=== PATIENT | female | born 1930 | race Caucasian/White ===

== ENCOUNTER 2016-11-12 13:04 | Emergency (ER) | payer OTHER ==
[~2016-11-12] VITALS: Ht 160 cm; Wt 65.9 kg
[~2016-11-12 13:04] MED LIST: ACCOLATE20 MG PO; ACETAMINOPHEN1 EAC4 PO; ADVAIR 250/501 DISK IH; ALBUTEROL17 GM IH; ALBUTEROL2.5 MG/3 M IH; ASMANEX TW200 MICROG IH; ASMANEX0.135 GM IH; ASPIR-LOW81 MG PO; AVAPRO150 MG PO; BABY ASPIRIN81 MG PO; BRAIN MIGHT-DH1 EACH PO; COLACE100 MG PO; CYMBALTA30 MG PO; CYMBALTA60 MG PO; DEXILANT30 MG; DEXILANT60 MG PO; EPIKLOR20 MEQ PO; FLUZONE IM; GLIPIZIDE XL5 MG PO; GLUCOPHAGE1000 MG PO; GLUCOPHAGE500 MG PO; GLUCOTROL XL10 MG PO; HYDROCODON-ACE1 EAC7 PO; ISOSORBIDE MONO60 MG PO; LASIX40 MG PO; LEVOFLOXACIN750 MG PO; LEVOTHYROXINE50 MCG PO; LIPITOR20 MG PO; LIPITOR40 MG PO; LISINOPRIL20 MG PO; MULTI-DAY VITA1 EACH PO; PAXIL20 MG PO; PAXIL40 MG PO; PLAVIX75 MG PO; PREDNISONE10 MG PO; PREDNISONE20 MG PO; PRILOSEC20 MG PO; PROVENTIL,2.5 MG/0.5 IH; SPIRIVA1 INHALATI IH; SYNTHROID25 MCG PO; TOPROL XL50 MG PO; TRAMADOL HCL50 MG PO; TRAZODONE HCL50 MG PO; TYLENOL PM1 CAPLET PO; Ultram PO; VENTOLIN HFA18 GM IH; ZESTRIL,PRINIV2.5 MG PO
[2016-11-12 13:55] LABS: HEMATOCRIT 40.1 % (36.0-46.0); MCHC 33.2 G/DL (30.0-36.0); MCV 93.5 FL (83-99); MEAN PLAT.VOLUME 10.1 uM^3 (9.5-12.4); PLATELET COUNT 212 K/uL (156-360); RBC DIS.WIDTH-CV 13.5 % (11.8-14.6); RBC DIS.WIDTH-SD 44.4 % (39-53); RED BLOOD COUNT 4.29 M/uL (3.80-5.20); WHITE BLOOD COUNT 7.8 K/uL (4.1-10.2)
[2016-11-12 14:06] LABS: CHLORIDE 102 mEq/L (99-109); POTASSIUM 4.2 mEq/L (3.7-5.4); SODIUM 138 mEq/L (136-147)
[2016-11-12 14:08] LABS: GLUCOSE 222 mg/dL (70-99)
[2016-11-12 14:10] LABS: ANION GAP 9 MEQ/L (2-14)
[2016-11-12 14:12] LABS: GFR ESTIMATE (CALCULATED) 45 mL/min/
[2016-11-12 14:13] LABS: UREA NITROGEN (BUN) 24 mg/dL (9-23)
[2016-11-12 14:30] LABS: ADD MIUA? YES; BILIRUBIN NEGATIVE; BLOOD SMALL; COLOR YELLOW ((YELLOW)); GLUCOSE (STRIP) NEGATIVE; KETONES NEGATIVE; LEUKOCYTES LARGE; NITRITE NEGATIVE; PROTEIN (STRIP) NEGATIVE; SPECIFIC GRAVITY 1.008 (1.000-1.030); UROBILINOGEN 0.2 MG/DL (0.2-1.0)
[2016-11-12 14:50] LABS: BACTERIA RARE /HPF; EPITHELIAL CELLS 1+ /HPF; HYALINE CASTS 0-5 /LPF; MUCUS NONE SEEN /LPF; RED BLOOD CELLS 0-5 /HPF (0-5); UCUL ADDED? NO
[2016-11-12] MEDS ORDERED: MACROBID100 MG PO (17:15)
[2016-11-12 17:25] VITALS: BP 131/84
== END 2016-11-12 17:34 | disposition home or self-care (01) ==
LOC: EME 13:04
DX: N39.0 Urinary tract infection, site not specified (principal); G89.29 Other chronic pain; I11.0 Hypertensive heart disease with heart failure; I50.9 Heart failure, unspecified
CPT/HCPCS: 81003; 85027; 99281; 99284

== ENCOUNTER 2016-12-06 16:54 | Inpatient (IN) | payer OTHER ==
[~2016-12-06] VITALS: Ht 160 cm; Wt 72.9 kg
[~2016-12-06 16:54] MED LIST changes: +MACROBID100 MG PO
[2016-12-06 17:53] LABS: BASOPHIL COUNT 0.1 K/uL (0-0.1); EOSINOPHIL (%) 6.2 % (0-5); EOSINOPHIL COUNT 0.5 K/uL (0-0.3); HEMATOCRIT 34.6 % (36.0-46.0); IMMATURE GRANULOCYTE (%) 0.3 % (0.0-0.7); INSTRUMENT ABS NEUTROPHIL CT 4.6 K/uL; LYMPHOCYTE COUNT 1.7 K/uL (1.0-2.8); MCH 31.2 PG (29.0-34.0); MCHC 32.7 G/DL (30.0-36.0); MCV 95.6 FL (83-99); MEAN PLAT.VOLUME 9.7 uM^3 (9.5-12.4); MONOCYTE (%) 10.3 % (3-12); MONOCYTE COUNT 0.8 K/uL (0-0.8); NEUTROPHIL (%) 60.4 % (45-76); NEUTROPHIL COUNT 4.6 K/uL (1.8-6.4); PLATELET COUNT 242 K/uL (156-360); RBC DIS.WIDTH-CV 13.6 % (11.8-14.6); RBC DIS.WIDTH-SD 47.8 % (39-53); RED BLOOD COUNT 3.62 M/uL (3.80-5.20); WHITE BLOOD COUNT 7.6 K/uL (4.1-10.2)
[2016-12-06 18:06] LABS: CHLORIDE 103 mEq/L (99-109); POTASSIUM 5.2 mEq/L (3.7-5.4); SODIUM 138 mEq/L (136-147)
[2016-12-06 18:07] LABS: GLUCOSE 165 mg/dL (70-99)
[2016-12-06 18:09] LABS: ANION GAP 12 MEQ/L (2-14); INTER. NORMALIZED RATIO 1.4; PROTHROMBIN TIME 14.6 (9.2-11.2); PTT 34.5 (25-32)
[2016-12-06 18:11] LABS: GFR ESTIMATE (CALCULATED) 27 mL/min/
[2016-12-06 18:12] LABS: UREA NITROGEN (BUN) 55 mg/dL (9-23)
[2016-12-06 18:20] LABS: TROP-I INTERPRETATION NEGATIVE; TROPONIN-I 0.03 ng/mL (0.0-0.30)
[2016-12-06] MEDS ORDERED: LEVOTHYROXINE175 MCG PO (18:40)
[2016-12-06] MEDS ORDERED: LEVOTHYROXINE75 MCG PO (18:41)
[2016-12-06] MEDS ORDERED: HYDROCODON-ACE1 EAC7 PO (18:44)
[2016-12-07] VITALS (20 sets, daily range): BP systolic 86–131; BP diastolic 51–103
[2016-12-07 00:48] LABS: TROP-I INTERPRETATION NEGATIVE; TROPONIN-I 0.02 ng/mL (0.0-0.30)
[2016-12-07 01:40] LABS: METH RESISTANT S AUREUS PCR NEGATIVE (NEGATIVE)
[2016-12-07 01:45] LABS: SPECIMEN PROCESSING CONTROL PASS
[2016-12-07 01:46] LABS: PROBE CHECK PASS
[2016-12-07 06:18] LABS: ALKALINE PHOSPHATASE 123 IU/L (3-129); ANION GAP 12 MEQ/L (2-14); CHLORIDE 99 MEQ/L (99-109); GFR ESTIMATE (CALCULATED) 30 mL/min/; MAGNESIUM 1.8 mg/dl (1.3-2.7); POTASSIUM 4.9 MEQ/L (3.7-5.4); SAMPLE HEMOLYSIS CHECK 0; SAMPLE ICTERIC CHECK 0; SAMPLE LIPEMIA CHECK 0; SODIUM 136 MEQ/L (136-147); TOTAL BILIRUBIN 0.6 MG/DL (0.0-1.0); UREA NITROGEN (BUN) 56 mg/dL (9-23)
[2016-12-07 06:19] LABS: GLUCOSE 321 mg/dL (70-99)
[2016-12-07 06:26] LABS: HEMATOCRIT 34.1 % (36.0-46.0); MCH 30.7 PG (29.0-34.0); MCHC 31.4 G/DL (30.0-36.0); MCV 97.7 FL (83-99); MEAN PLAT.VOLUME 9.9 uM^3 (9.5-12.4); PLATELET COUNT 232 K/uL (156-360); RBC DIS.WIDTH-CV 13.8 % (11.8-14.6); RBC DIS.WIDTH-SD 49.3 % (39-53); RED BLOOD COUNT 3.49 M/uL (3.80-5.20)
[2016-12-07 06:38] LABS: WHITE BLOOD COUNT 4.9 K/uL (4.1-10.2)
[2016-12-07 06:39] LABS: TROP-I INTERPRETATION NEGATIVE; TROPONIN-I 0.03 ng/mL (0.0-0.30)
[2016-12-07 10:13] LABS: POINT-OF-CARE METER ID UU13113731
[2016-12-07 14:32] LABS: POINT-OF-CARE METER ID UU13113803
[2016-12-07 16:59] LABS: POINT-OF-CARE METER ID UU13113803
[2016-12-07 21:18] LABS: POINT-OF-CARE METER ID UU13113803
[2016-12-08] VITALS (17 sets, daily range): BP systolic 92–136; BP diastolic 56–89
[2016-12-08 09:29] LABS: ANION GAP 13 MEQ/L (2-14); CHLORIDE 99 MEQ/L (99-109); GFR ESTIMATE (CALCULATED) 30 mL/min/; GLUCOSE 281 mg/dL (70-99); SAMPLE HEMOLYSIS CHECK 1; SAMPLE ICTERIC CHECK 0; SAMPLE LIPEMIA CHECK 0; SODIUM 134 MEQ/L (136-147); UREA NITROGEN (BUN) 64 mg/dL (9-23)
[2016-12-08 09:44] LABS: MCH 30.5 PG (29.0-34.0); MEAN PLAT.VOLUME 9.7 uM^3 (9.5-12.4); PLATELET COUNT 273 K/uL (156-360); RED BLOOD COUNT 3.54 M/uL (3.80-5.20)
[2016-12-08 09:50] LABS: MCV 101.7 FL (83-99); WHITE BLOOD COUNT 19.4 K/uL (4.1-10.2)
[2016-12-08] MEDS ORDERED: PAXIL40 MG PO (12:52)
[2016-12-08 17:01] LABS: POINT-OF-CARE USER ID 606021424
[2016-12-08 20:28] LABS: POINT-OF-CARE METER ID UU13113698
[2016-12-09 04:03] VITALS: BP 152/92
[2016-12-09 06:40] LABS: EOSINOPHIL (%) 0 % (0-5); HEMATOCRIT 38.2 % (36.0-46.0); IMMATURE GRANULOCYTE (%) 0.5 % (0.0-0.7); IMMATURE GRANULOCYTE COUNT 0.1 K/uL; INSTRUMENT ABS NEUTROPHIL CT 18.1 K/uL; LYMPHOCYTE COUNT 1.5 K/uL (1.0-2.8); MCH 30.5 PG (29.0-34.0); MCHC 31.7 G/DL (30.0-36.0); MEAN PLAT.VOLUME 9.5 uM^3 (9.5-12.4); MONOCYTE (%) 7.9 % (3-12); MONOCYTE COUNT 1.7 K/uL (0-0.8); NEUTROPHIL (%) 84.5 % (45-76); NEUTROPHIL COUNT 18.1 K/uL (1.8-6.4); PLATELET COUNT 323 K/uL (156-360); RBC DIS.WIDTH-CV 13.9 % (11.8-14.6); RBC DIS.WIDTH-SD 49.3 % (39-53); RED BLOOD COUNT 3.97 M/uL (3.80-5.20); WHITE BLOOD COUNT 21.4 K/uL (4.1-10.2)
[2016-12-09 06:42] LABS: MCV 96.2 FL (83-99)
[2016-12-09 07:01] LABS: ANION GAP 14 MEQ/L (2-14); CHLORIDE 96 MEQ/L (99-109); GLUCOSE 244 mg/dL (70-99); SAMPLE HEMOLYSIS CHECK 0; SAMPLE ICTERIC CHECK 0; SAMPLE LIPEMIA CHECK 0; SODIUM 131 MEQ/L (136-147); UREA NITROGEN (BUN) 79 mg/dL (9-23)
[2016-12-09 07:02] LABS: GFR ESTIMATE (CALCULATED) 19 mL/min/; POTASSIUM 6.5 MEQ/L (3.7-5.4)
[2016-12-09 08:00] LABS: POINT-OF-CARE METER ID UU13113698; POINT-OF-CARE USER ID NUTSLF44
[2016-12-09 08:19] VITALS: BP 134/87
[2016-12-09 09:07] LABS: EOSINOPHIL (%) 0 % (0-5); HEMATOCRIT 38.6 % (36.0-46.0); IMMATURE GRANULOCYTE (%) 0.6 % (0.0-0.7); IMMATURE GRANULOCYTE COUNT 0.1 K/uL; INSTRUMENT ABS NEUTROPHIL CT 18.2 K/uL; LYMPHOCYTE COUNT 1.8 K/uL (1.0-2.8); MCH 30.9 PG (29.0-34.0); MCHC 31.6 G/DL (30.0-36.0); MCV 97.7 FL (83-99); MEAN PLAT.VOLUME 9.8 uM^3 (9.5-12.4); MONOCYTE (%) 6.8 % (3-12); MONOCYTE COUNT 1.5 K/uL (0-0.8); NEUTROPHIL (%) 84.1 % (45-76); NEUTROPHIL COUNT 18.2 K/uL (1.8-6.4); PLATELET COUNT 286 K/uL (156-360); RBC DIS.WIDTH-SD 50.4 % (39-53); RED BLOOD COUNT 3.95 M/uL (3.80-5.20); WHITE BLOOD COUNT 21.6 K/uL (4.1-10.2)
[2016-12-09 09:38] LABS: ANION GAP 15 MEQ/L (2-14); CHLORIDE 97 MEQ/L (99-109); GFR ESTIMATE (CALCULATED) 19 mL/min/; GLUCOSE 243 mg/dL (70-99); SAMPLE HEMOLYSIS CHECK 0; SAMPLE ICTERIC CHECK 0; SAMPLE LIPEMIA CHECK 0; SODIUM 130 MEQ/L (136-147); UREA NITROGEN (BUN) 82 mg/dL (9-23)
[2016-12-09 09:39] LABS: POTASSIUM 6.7 MEQ/L (3.7-5.4)
[2016-12-09 11:31] VITALS: BP 133/68
[2016-12-09 11:43] LABS: POINT-OF-CARE METER ID UU13113698; POINT-OF-CARE USER ID NUTSLF44
[2016-12-09 13:13] LABS: ANION GAP 11 MEQ/L (2-14); CHLORIDE 100 MEQ/L (99-109); SAMPLE HEMOLYSIS CHECK 0; SAMPLE ICTERIC CHECK 0; SAMPLE LIPEMIA CHECK 0
[2016-12-09 13:20] LABS: POTASSIUM 5.3 MEQ/L (3.7-5.4); SODIUM 137 MEQ/L (136-147)
[2016-12-09 13:28] LABS: GFR ESTIMATE (CALCULATED) 19 mL/min/; GLUCOSE 211 mg/dL (70-99); UREA NITROGEN (BUN) 85 mg/dL (9-23)
[2016-12-09 14:07] LABS: AHBS INDEX 0.35; HEPATITIS B SURFACE ANTIBODY Nonreactive
[2016-12-09 14:08] LABS: ANTI-HEPATITIS B CORE (IGM) Nonreactive; HBC IgM INDEX 0.34
[2016-12-09 20:00] VITALS: BP 128/74
[2016-12-09 21:36] LABS: POINT-OF-CARE METER ID UU13113698
[2016-12-09 23:51] VITALS: BP 122/81
[2016-12-10 04:36] VITALS: BP 119/83
[2016-12-10 07:37] LABS: POINT-OF-CARE METER ID UU13113781
[2016-12-10 09:02] LABS: ANION GAP 11 MEQ/L (2-14); CHLORIDE 99 MEQ/L (99-109); GLUCOSE 200 mg/dL (70-99); SAMPLE HEMOLYSIS CHECK 0; SAMPLE ICTERIC CHECK 0; SAMPLE LIPEMIA CHECK 0; SODIUM 139 MEQ/L (136-147); UREA NITROGEN (BUN) 43 mg/dL (9-23)
[2016-12-10 09:03] LABS: GFR ESTIMATE (CALCULATED) 30 mL/min/; POTASSIUM 3.9 MEQ/L (3.7-5.4)
[2016-12-10 09:15] LABS: EOSINOPHIL (%) 0.2 % (0-5); HEMATOCRIT 36.2 % (36.0-46.0); IMMATURE GRANULOCYTE (%) 0.4 % (0.0-0.7); IMMATURE GRANULOCYTE COUNT 0.1 K/uL; INSTRUMENT ABS NEUTROPHIL CT 9.2 K/uL; MCH 30.3 PG (29.0-34.0); MCHC 31.8 G/DL (30.0-36.0); MCV 95.3 FL (83-99); MEAN PLAT.VOLUME 9.7 uM^3 (9.5-12.4); MONOCYTE (%) 11.3 % (3-12); MONOCYTE COUNT 1.4 K/uL (0-0.8); NEUTROPHIL (%) 72.5 % (45-76); NEUTROPHIL COUNT 9.2 K/uL (1.8-6.4); PLATELET COUNT 219 K/uL (156-360); RBC DIS.WIDTH-CV 13.8 % (11.8-14.6); RBC DIS.WIDTH-SD 47.8 % (39-53)
[2016-12-10 09:18] LABS: WHITE BLOOD COUNT 12.8 K/uL (4.1-10.2)
[2016-12-10 09:30] VITALS: BP 111/79
[2016-12-10 11:00] VITALS: BP 108/62
[2016-12-10 11:44] LABS: POINT-OF-CARE METER ID UU13113781
[2016-12-10 15:57] VITALS: BP 109/67
[2016-12-10 16:19] LABS: POINT-OF-CARE METER ID UU13113781
[2016-12-10 20:31] VITALS: BP 126/83
[2016-12-10 20:46] LABS: POINT-OF-CARE METER ID UU13113781
[2016-12-11] VITALS: BP 135/75
[2016-12-11 03:50] VITALS: BP 139/89
[2016-12-11 07:40] VITALS: BP 134/71
[2016-12-11 10:27] LABS: ANION GAP 9 MEQ/L (2-14); CHLORIDE 98 MEQ/L (99-109); POTASSIUM 3.7 MEQ/L (3.7-5.4); SAMPLE HEMOLYSIS CHECK 0; SAMPLE ICTERIC CHECK 0; SAMPLE LIPEMIA CHECK 0; SODIUM 136 MEQ/L (136-147)
[2016-12-11 10:32] LABS: GFR ESTIMATE (CALCULATED) 41 mL/min/; GLUCOSE 235 mg/dL (70-99); UREA NITROGEN (BUN) 38 mg/dL (9-23)
[2016-12-11 10:33] LABS: EOSINOPHIL (%) 0.3 % (0-5); EOSINOPHIL COUNT 0.1 K/uL (0-0.3); IMMATURE GRANULOCYTE (%) 0.5 % (0.0-0.7); IMMATURE GRANULOCYTE COUNT 0.1 K/uL; INSTRUMENT ABS NEUTROPHIL CT 15.5 K/uL; LYMPHOCYTE COUNT 0.9 K/uL (1.0-2.8); MCH 30.3 PG (29.0-34.0); MCHC 31.9 G/DL (30.0-36.0); MCV 95.1 FL (83-99); MEAN PLAT.VOLUME 9.6 uM^3 (9.5-12.4); MONOCYTE (%) 6.5 % (3-12); MONOCYTE COUNT 1.2 K/uL (0-0.8); NEUTROPHIL (%) 87.5 % (45-76); NEUTROPHIL COUNT 15.5 K/uL (1.8-6.4); PLATELET COUNT 250 K/uL (156-360); RBC DIS.WIDTH-CV 13.6 % (11.8-14.6); RBC DIS.WIDTH-SD 47.1 % (39-53); RED BLOOD COUNT 3.89 M/uL (3.80-5.20); WHITE BLOOD COUNT 17.7 K/uL (4.1-10.2)
[2016-12-11 11:05] VITALS: BP 132/86
[2016-12-11 11:27] LABS: POINT-OF-CARE METER ID UU13113698
[2016-12-11 16:42] LABS: POINT-OF-CARE METER ID UU13113698
[2016-12-11 19:20] VITALS: BP 169/95
[2016-12-11 20:47] LABS: POINT-OF-CARE METER ID UU13113781
[2016-12-12 00:15] VITALS: BP 132/95
[2016-12-12 04:00] VITALS: BP 157/100
[2016-12-12 06:23] LABS: EOSINOPHIL (%) 2.3 % (0-5); EOSINOPHIL COUNT 0.4 K/uL (0-0.3); HEMATOCRIT 41.5 % (36.0-46.0); IMMATURE GRANULOCYTE (%) 0.4 % (0.0-0.7); IMMATURE GRANULOCYTE COUNT 0.1 K/uL; INSTRUMENT ABS NEUTROPHIL CT 11.4 K/uL; MCHC 31.3 G/DL (30.0-36.0); MCV 95.6 FL (83-99); MEAN PLAT.VOLUME 9.5 uM^3 (9.5-12.4); MONOCYTE (%) 8.8 % (3-12); MONOCYTE COUNT 1.3 K/uL (0-0.8); NEUTROPHIL (%) 75.4 % (45-76); NEUTROPHIL COUNT 11.4 K/uL (1.8-6.4); PLATELET COUNT 250 K/uL (156-360); RBC DIS.WIDTH-CV 13.5 % (11.8-14.6); RBC DIS.WIDTH-SD 47.4 % (39-53); RED BLOOD COUNT 4.34 M/uL (3.80-5.20); WHITE BLOOD COUNT 15.1 K/uL (4.1-10.2)
[2016-12-12 06:47] LABS: ANION GAP 8 MEQ/L (2-14); CHLORIDE 99 MEQ/L (99-109); POTASSIUM 4.2 MEQ/L (3.7-5.4); SAMPLE HEMOLYSIS CHECK 0; SAMPLE ICTERIC CHECK 0; SAMPLE LIPEMIA CHECK 0; SODIUM 137 MEQ/L (136-147)
[2016-12-12 06:53] LABS: GFR ESTIMATE (CALCULATED) 50 mL/min/; GLUCOSE 191 mg/dL (70-99); UREA NITROGEN (BUN) 29 mg/dL (9-23)
[2016-12-12 07:41] LABS: POINT-OF-CARE METER ID UU13113698
[2016-12-12 07:45] VITALS: BP 141/91
[2016-12-12 11:34] LABS: POINT-OF-CARE METER ID UU13113698
[2016-12-12 12:00] VITALS: BP 114/81
[2016-12-12 14:39] LABS: METH RESISTANT S AUREUS PCR NEGATIVE (NEGATIVE)
[2016-12-12 14:40] LABS: PROBE CHECK PASS; SPECIMEN PROCESSING CONTROL PASS
[2016-12-12 16:32] LABS: POINT-OF-CARE METER ID UU13113698
[2016-12-12 16:34] VITALS: BP 118/70
[2016-12-12 19:15] VITALS: BP 134/91
[2016-12-12 21:15] LABS: POINT-OF-CARE METER ID UU13113698
[2016-12-13] VITALS (7 sets, daily range): BP systolic 112–139; BP diastolic 65–100
[2016-12-13 07:43] LABS: ANION GAP 11 MEQ/L (2-14); CHLORIDE 101 MEQ/L (99-109); POTASSIUM 4.1 MEQ/L (3.7-5.4); SAMPLE HEMOLYSIS CHECK 0; SAMPLE ICTERIC CHECK 0; SAMPLE LIPEMIA CHECK 0; SODIUM 137 MEQ/L (136-147)
[2016-12-13 07:49] LABS: GFR ESTIMATE (CALCULATED) 50 mL/min/; GLUCOSE 172 mg/dL (70-99); UREA NITROGEN (BUN) 28 mg/dL (9-23)
[2016-12-13 07:56] LABS: POINT-OF-CARE USER ID ENVKC36
[2016-12-13 11:42] LABS: POINT-OF-CARE USER ID ENVKC36
[2016-12-13 16:40] LABS: POINT-OF-CARE USER ID ENVKC36
[2016-12-13 21:16] LABS: POINT-OF-CARE METER ID UU14174216
[2016-12-14 04:02] VITALS: BP 122/79
[2016-12-14 07:30] VITALS: BP 130/80
[2016-12-14 07:34] LABS: POINT-OF-CARE METER ID UU13113698; POINT-OF-CARE USER ID ENVKC36
[2016-12-14 11:49] LABS: POINT-OF-CARE METER ID UU13113698; POINT-OF-CARE USER ID NUTSLF44
[2016-12-14 12:00] VITALS: BP 133/91
[2016-12-14] MEDS ORDERED: NOVOLOG PE100 UNITS/ SC (15:12)
[2016-12-14] MEDS ORDERED: PREDNISONE10 M1 PO (15:12)
[2016-12-14] MEDS ORDERED: AUGMENTIN875 MG PO (15:14)
[2016-12-14] MEDS ORDERED: DUONEB 2.5-0.5 M3 ML AEROSOL (15:15)
[2016-12-14] MEDS ORDERED: ELIQUIS5 MG PO (15:18)
[2016-12-14] MEDS ORDERED: DOCUSATE SODIU100 MG PO (15:20)
[2016-12-14] MEDS ORDERED: LOPRESSOR50 MG PO (15:20)
[2016-12-14 15:54] VITALS: BP 120/81
[2016-12-14 16:00] LABS: POINT-OF-CARE METER ID UU13113698
[2016-12-14] MEDS ORDERED: AUGMENTIN500 MG PO ×2 (16:33→16:47)
[2016-12-14] MEDS ORDERED: HYDROCODON-ACE1 EAC7 PO (18:14)
== END 2016-12-14 18:42 | DRG 682 ==
LOC: EME → EDBD 16:54 → EME 16:54 → 4WEST 21:36 → EDOF 21:36 → 4EAST 21:36 → 4WEST 12-07 00:01 → 4EAST 12-08 18:02
PROVIDERS: Emergency Medicine; Hospitalist; Internal Medicine; Internal Medicine Nephrology; Physician Assistant Medical; Student in an Organized Health Care Education/Training Program
PROC: B543ZZA Ultrasonography of Right Jugular Veins, Guidance (ICD-10-PCS; principal; 2016-12-09)
PROC: 05HM33Z Insertion of Infusion Device into Right Internal Jugular Vein, Percutaneous Approach (ICD-10-PCS; principal; 2016-12-09)
PROC: 5A1D60Z (ICD-10-PCS; principal; 2016-12-09)
DX: N17.9 Acute kidney failure, unspecified (principal); J96.00 Acute respiratory failure, unspecified whether with hypoxia or hypercapnia; J18.9 Pneumonia, unspecified organism; J45.901 Unspecified asthma with (acute) exacerbation; I50.22 Chronic systolic (congestive) heart failure; E87.2 Acidosis; I82.612 Acute embolism and thrombosis of superficial veins of left upper extremity; I70.202 Unspecified atherosclerosis of native arteries of extremities, left leg; I48.91 Unspecified atrial fibrillation; I25.5 Ischemic cardiomyopathy; E11.22 Type 2 diabetes mellitus with diabetic chronic kidney disease; I12.9 Hypertensive chronic kidney disease with stage 1 through stage 4 chronic kidney disease, or unspecified chronic kidney disease; J44.9 Chronic obstructive pulmonary disease, unspecified; N18.3 Chronic kidney disease, stage 3 (moderate); I25.10 Atherosclerotic heart disease of native coronary artery without angina pectoris; E03.9 Hypothyroidism, unspecified; K21.9 Gastro-esophageal reflux disease without esophagitis; G89.4 Chronic pain syndrome; K43.2 Incisional hernia without obstruction or gangrene; Y95 Nosocomial condition; K44.9 Diaphragmatic hernia without obstruction or gangrene; I25.2 Old myocardial infarction; Z95.1 Presence of aortocoronary bypass graft; Z90.49 Acquired absence of other specified parts of digestive tract
CPT/HCPCS: 71010; 76770; 80048; 80048 91; 80053; 80069; 82948; 83735; 84100; 84443; 84484; 85025; 85025 91; 85027; 85610; 85730; 86705; 86706; 87340; 87641; 93005; 93306; 93925; 93971; 94640; 94640 76; 94760; 94799; 97530 GO; 97530 GP; 99202; 99281; 99285; C1752; J0153; J1644; J1815; J2405; J2543; J2920; J2930; J3370; J7030; J7050

== ENCOUNTER 2016-12-19 10:05 | Inpatient (IN) | payer OTHER ==
[~2016-12-19] VITALS: Ht 160 cm; Wt 53.1 kg
[2016-12-19] VITALS (11 sets, daily range): BP systolic 98–136; BP diastolic 53–80
[~2016-12-19 10:05] MED LIST changes: +AUGMENTIN500 MG PO; +AUGMENTIN875 MG PO; +DOCUSATE SODIU100 MG PO; +DUONEB 2.5-0.5 M3 ML AEROSOL; +ELIQUIS5 MG PO; +LEVOTHYROXINE175 MCG PO; +LEVOTHYROXINE75 MCG PO; +LOPRESSOR50 MG PO; +NOVOLOG PE100 UNITS/ SC; +PREDNISONE10 M1 PO
[2016-12-19 10:39] LABS: EOSINOPHIL (%) 1.8 % (0-5); EOSINOPHIL COUNT 0.3 K/uL (0-0.3); HEMATOCRIT 36.4 % (36.0-46.0); IMMATURE GRANULOCYTE (%) 0.4 % (0.0-0.7); IMMATURE GRANULOCYTE COUNT 0.1 K/uL; INSTRUMENT ABS NEUTROPHIL CT 11.2 K/uL; LYMPHOCYTE COUNT 1.8 K/uL (1.0-2.8); MCH 31.1 PG (29.0-34.0); MCV 94.3 FL (83-99); MONOCYTE (%) 6.9 % (3-12); NEUTROPHIL (%) 78.5 % (45-76); NEUTROPHIL COUNT 11.2 K/uL (1.8-6.4); PLATELET COUNT 227 K/uL (156-360); RBC DIS.WIDTH-CV 14.2 % (11.8-14.6); RBC DIS.WIDTH-SD 47.8 % (39-53); RED BLOOD COUNT 3.86 M/uL (3.80-5.20); WHITE BLOOD COUNT 14.3 K/uL (4.1-10.2)
[2016-12-19 10:41] LABS: CARBON DIOXIDE (BICARBONATE) 28.5 MEQ/L (20-31)
[2016-12-19 10:47] LABS: CHLORIDE 100 mEq/L (99-109); POTASSIUM 4.7 mEq/L (3.7-5.4); SODIUM 136 mEq/L (136-147)
[2016-12-19 10:49] LABS: GLUCOSE 222 mg/dL (70-99)
[2016-12-19 10:50] LABS: ANION GAP 14 MEQ/L (2-14)
[2016-12-19 10:52] LABS: GFR ESTIMATE (CALCULATED) 35 mL/min/
[2016-12-19 10:53] LABS: UREA NITROGEN (BUN) 33 mg/dL (9-23)
[2016-12-19 11:00] LABS: TROP-I INTERPRETATION NEGATIVE; TROPONIN-I 0.01 ng/mL (0.0-0.30)
[2016-12-19] MEDS ORDERED: BREO ELLIPTA I1 EACH IH (15:51)
[2016-12-19] MEDS ORDERED: METFORMIN HCL500 MG PO (15:52)
[2016-12-19] MEDS ORDERED: MILLIPRED5 MG PO (15:54)
[2016-12-19] MEDS ORDERED: AUGMENTIN875 MG PO (15:57)
[2016-12-19] MEDS ORDERED: METOPROLOL TART50 MG PO (15:59)
[2016-12-19] MEDS ORDERED: DUONEB 2.5-0.5 M3 ML AEROSOL (15:59)
[2016-12-19] MEDS ORDERED: DULCOLAX10 MG PR (16:00)
[2016-12-19] MEDS ORDERED: MIRALAX255 GM PO (16:02)
[2016-12-19] MEDS ORDERED: FUROSEMIDE40 MG PO (16:02)
[2016-12-19] MEDS ORDERED: PHILLIPS'400 MG/5 M PO (16:02)
[2016-12-19 16:40] LABS: METH RESISTANT S AUREUS PCR NEGATIVE (NEGATIVE)
[2016-12-19 16:44] LABS: PROBE CHECK PASS; SPECIMEN PROCESSING CONTROL PASS
[2016-12-20] VITALS (21 sets, daily range): BP systolic 110–141; BP diastolic 64–102
[2016-12-20 00:32] LABS: HEMATOCRIT 34.7 % (36.0-46.0); MCH 30.4 PG (29.0-34.0); MCHC 31.4 G/DL (30.0-36.0); MCV 96.7 FL (83-99); MEAN PLAT.VOLUME 10.1 uM^3 (9.5-12.4); PLATELET COUNT 203 K/uL (156-360); RBC DIS.WIDTH-CV 14.3 % (11.8-14.6); RBC DIS.WIDTH-SD 50.3 % (39-53); RED BLOOD COUNT 3.59 M/uL (3.80-5.20)
[2016-12-20 00:33] LABS: WHITE BLOOD COUNT 9.6 K/uL (4.1-10.2)
[2016-12-20 00:43] LABS: CHLORIDE 97 mEq/L (99-109); POTASSIUM 5.5 mEq/L (3.7-5.4); SODIUM 134 mEq/L (136-147)
[2016-12-20 00:44] LABS: MAGNESIUM 1.6 mg/dL (1.3-2.7)
[2016-12-20 00:46] LABS: ANION GAP 16 MEQ/L (2-14)
[2016-12-20 00:49] LABS: GFR ESTIMATE (CALCULATED) 28 mL/min/
[2016-12-20 00:50] LABS: UREA NITROGEN (BUN) 43 mg/dL (9-23)
[2016-12-20 01:05] LABS: GLUCOSE 616 mg/dL (70-99)
[2016-12-20 04:13] LABS: POINT-OF-CARE METER ID UU13113731
[2016-12-20 06:12] LABS: POINT-OF-CARE METER ID UU14162636
[2016-12-20 10:32] LABS: POINT-OF-CARE METER ID UU13113731
[2016-12-20 12:14] LABS: POINT-OF-CARE METER ID UU14174217
[2016-12-21] VITALS (16 sets, daily range): BP systolic 105–142; BP diastolic 53–95
[2016-12-21 06:00] LABS: POINT-OF-CARE METER ID UU14162636
[2016-12-21 09:05] LABS: HEMATOCRIT 36.7 % (36.0-46.0); MCH 30.1 PG (29.0-34.0); MCHC 31.6 G/DL (30.0-36.0); MCV 95.3 FL (83-99); MEAN PLAT.VOLUME 10.1 uM^3 (9.5-12.4); PLATELET COUNT 209 K/uL (156-360); RBC DIS.WIDTH-CV 14.6 % (11.8-14.6); RBC DIS.WIDTH-SD 49.6 % (39-53); RED BLOOD COUNT 3.85 M/uL (3.80-5.20)
[2016-12-21 09:06] LABS: WHITE BLOOD COUNT 15.4 K/uL (4.1-10.2)
[2016-12-21 09:19] LABS: ANION GAP 10 MEQ/L (2-14); CHLORIDE 98 MEQ/L (99-109); SAMPLE HEMOLYSIS CHECK 0; SAMPLE ICTERIC CHECK 0; SAMPLE LIPEMIA CHECK 0; SODIUM 139 MEQ/L (136-147); UREA NITROGEN (BUN) 38 mg/dL (9-23)
[2016-12-21 09:41] LABS: GFR ESTIMATE (CALCULATED) 45 mL/min/; GLUCOSE 94 mg/dL (70-99); POTASSIUM 3.6 MEQ/L (3.7-5.4)
[2016-12-21 10:25] LABS: POINT-OF-CARE METER ID UU13113803
[2016-12-21 11:49] LABS: POINT-OF-CARE METER ID UU14162636
[2016-12-21 17:38] LABS: POINT-OF-CARE METER ID UU13113803
[2016-12-22] VITALS (15 sets, daily range): BP systolic 109–142; BP diastolic 61–89
[2016-12-22 00:10] LABS: POINT-OF-CARE METER ID UU13113803
[2016-12-22 07:32] LABS: ANION GAP 7 MEQ/L (2-14); CHLORIDE 99 MEQ/L (99-109); GFR ESTIMATE (CALCULATED) 41 mL/min/; GLUCOSE 287 mg/dL (70-99); POTASSIUM 4.5 MEQ/L (3.7-5.4); SAMPLE HEMOLYSIS CHECK 0; SAMPLE ICTERIC CHECK 0; SAMPLE LIPEMIA CHECK 0; SODIUM 135 MEQ/L (136-147); UREA NITROGEN (BUN) 33 mg/dL (9-23)
[2016-12-22 08:11] LABS: MCH 30.6 PG (29.0-34.0); MCHC 32.2 G/DL (30.0-36.0); MEAN PLAT.VOLUME 10.5 uM^3 (9.5-12.4); PLATELET COUNT 179 K/uL (156-360); RBC DIS.WIDTH-CV 14.6 % (11.8-14.6); RBC DIS.WIDTH-SD 50.4 % (39-53); RED BLOOD COUNT 3.79 M/uL (3.80-5.20)
[2016-12-22 08:13] LABS: WHITE BLOOD COUNT 10.4 K/uL (4.1-10.2)
[2016-12-23] VITALS (14 sets, daily range): BP systolic 104–143; BP diastolic 48–77
[2016-12-23 05:51] LABS: HEMATOCRIT 34.5 % (36.0-46.0); MCH 29.8 PG (29.0-34.0); MCHC 31.9 G/DL (30.0-36.0); MCV 93.5 FL (83-99); MEAN PLAT.VOLUME 10.2 uM^3 (9.5-12.4); PLATELET COUNT 185 K/uL (156-360); RBC DIS.WIDTH-CV 14.5 % (11.8-14.6); RBC DIS.WIDTH-SD 48.9 % (39-53); RED BLOOD COUNT 3.69 M/uL (3.80-5.20)
[2016-12-23 06:19] LABS: ANION GAP 8 MEQ/L (2-14); CHLORIDE 97 MEQ/L (99-109); GFR ESTIMATE (CALCULATED) 50 mL/min/; GLUCOSE 274 mg/dL (70-99); POTASSIUM 3.9 MEQ/L (3.7-5.4); SAMPLE HEMOLYSIS CHECK 0; SAMPLE ICTERIC CHECK 0; SAMPLE LIPEMIA CHECK 0; SODIUM 135 MEQ/L (136-147); UREA NITROGEN (BUN) 31 mg/dL (9-23)
[2016-12-23 11:27] LABS: POINT-OF-CARE METER ID UU13113803; POINT-OF-CARE USER ID 606021424
[2016-12-23 12:30] LABS: POINT-OF-CARE METER ID UU13113803
[2016-12-23 16:06] LABS: POINT-OF-CARE METER ID UU13113803; POINT-OF-CARE USER ID NUTJLF39
[2016-12-23 21:35] LABS: POINT-OF-CARE METER ID UU13113803
[2016-12-24] VITALS (7 sets, daily range): BP systolic 133–188; BP diastolic 69–94
[2016-12-24 06:55] LABS: HEMATOCRIT 35.5 % (36.0-46.0); MCH 30.4 PG (29.0-34.0); MCHC 32.4 G/DL (30.0-36.0); MCV 93.9 FL (83-99); MEAN PLAT.VOLUME 10.6 uM^3 (9.5-12.4); PLATELET COUNT 174 K/uL (156-360); RBC DIS.WIDTH-CV 14.7 % (11.8-14.6); RBC DIS.WIDTH-SD 49.9 % (39-53); RED BLOOD COUNT 3.78 M/uL (3.80-5.20); WHITE BLOOD COUNT 11.7 K/uL (4.1-10.2)
[2016-12-24 07:04] LABS: ANION GAP 6 MEQ/L (2-14); CHLORIDE 99 MEQ/L (99-109); GFR ESTIMATE (CALCULATED) 50 mL/min/; GLUCOSE 155 mg/dL (70-99); POTASSIUM 3.7 MEQ/L (3.7-5.4); SAMPLE HEMOLYSIS CHECK 0; SAMPLE ICTERIC CHECK 0; SAMPLE LIPEMIA CHECK 0; SODIUM 136 MEQ/L (136-147); UREA NITROGEN (BUN) 27 mg/dL (9-23)
[2016-12-24 12:32] LABS: POINT-OF-CARE METER ID UU14149397
[2016-12-24 17:07] LABS: POINT-OF-CARE METER ID UU14188577
[2016-12-24 21:32] LABS: POINT-OF-CARE METER ID UU14149397
[2016-12-25 05:44] VITALS: BP 112/75
[2016-12-25 06:55] LABS: POINT-OF-CARE METER ID UU14188577
[2016-12-25 08:38] VITALS: BP 120/80
[2016-12-25 09:10] LABS: ANION GAP 7 MEQ/L (2-14); CHLORIDE 100 MEQ/L (99-109); GFR ESTIMATE (CALCULATED) > 59 mL/min/; POTASSIUM 3.6 MEQ/L (3.7-5.4); SAMPLE HEMOLYSIS CHECK 0; SAMPLE ICTERIC CHECK 0; SAMPLE LIPEMIA CHECK 0; SODIUM 138 MEQ/L (136-147); UREA NITROGEN (BUN) 21 mg/dL (9-23)
[2016-12-25 09:16] LABS: GLUCOSE 100 mg/dL (70-99)
[2016-12-25 11:30] VITALS: BP 120/90
[2016-12-25 16:30] VITALS: BP 100/70
[2016-12-25 20:02] VITALS: BP 154/81
[2016-12-26 00:07] VITALS: BP 164/97
[2016-12-26 01:53] LABS: POINT-OF-CARE METER ID UU14149397
[2016-12-26 04:52] LABS: POINT-OF-CARE METER ID UU14149397
[2016-12-26 05:00] LABS: HEMATOCRIT 39.3 % (36.0-46.0); MCH 30.2 PG (29.0-34.0); MCHC 31.6 G/DL (30.0-36.0); MCV 95.9 FL (83-99); MEAN PLAT.VOLUME 10.2 uM^3 (9.5-12.4); PLATELET COUNT 203 K/uL (156-360); RBC DIS.WIDTH-CV 14.6 % (11.8-14.6); RBC DIS.WIDTH-SD 50.9 % (39-53); WHITE BLOOD COUNT 12.6 K/uL (4.1-10.2)
[2016-12-26 05:04] LABS: HEMATOCRIT 39.3 % (36.0-46.0); MCH 30.6 PG (29.0-34.0); MCHC 32.1 G/DL (30.0-36.0); MCV 95.4 FL (83-99); MEAN PLAT.VOLUME 10.1 uM^3 (9.5-12.4); PLATELET COUNT 215 K/uL (156-360); RBC DIS.WIDTH-CV 14.6 % (11.8-14.6); RBC DIS.WIDTH-SD 50.7 % (39-53); RED BLOOD COUNT 4.12 M/uL (3.80-5.20); WHITE BLOOD COUNT 12.7 K/uL (4.1-10.2)
[2016-12-26 05:06] LABS: POINT-OF-CARE METER ID UU14149397
[2016-12-26 05:08] LABS: CHLORIDE 100 mEq/L (99-109); POTASSIUM 3.5 mEq/L (3.7-5.4); SODIUM 140 mEq/L (136-147)
[2016-12-26 05:10] LABS: CHLORIDE 99 mEq/L (99-109); POTASSIUM 3.4 mEq/L (3.7-5.4); SODIUM 139 mEq/L (136-147)
[2016-12-26 05:11] LABS: ANION GAP 11 MEQ/L (2-14)
[2016-12-26 05:12] LABS: TOTAL BILIRUBIN 1.3 mg/dL (0.0-1.0)
[2016-12-26 05:13] LABS: ALKALINE PHOSPHATASE 108 IU/L (3-129); ANION GAP 13 MEQ/L (2-14)
[2016-12-26 05:14] LABS: GFR ESTIMATE (CALCULATED) 50 mL/min/
[2016-12-26 05:15] LABS: GFR ESTIMATE (CALCULATED) 50 mL/min/; UREA NITROGEN (BUN) 23 mg/dL (9-23)
[2016-12-26 05:16] LABS: UREA NITROGEN (BUN) 23 mg/dL (9-23)
[2016-12-26 05:19] LABS: GLUCOSE 207 mg/dL (70-99)
[2016-12-26 05:25] LABS: DIGOXIN 0.4 ng/mL (0.8-2.0); GLUCOSE 211 mg/dL (70-99)
[2016-12-26 05:28] VITALS: BP 151/87
[2016-12-26 07:30] VITALS: BP 136/70
[2016-12-26 08:14] LABS: POINT-OF-CARE USER ID ENVKC36
[2016-12-26 08:48] LABS: MAGNESIUM 1.7 mg/dL (1.3-2.7)
[2016-12-26 10:17] LABS: POINT-OF-CARE USER ID ENVKC36
[2016-12-26 11:20] VITALS: BP 131/75
[2016-12-26 12:06] LABS: POINT-OF-CARE USER ID ENVKC36
[2016-12-26 12:22] LABS: POINT-OF-CARE METER ID UU14149397
[2016-12-26 15:48] VITALS: BP 130/73
[2016-12-26 16:39] LABS: POINT-OF-CARE USER ID ENVKC36
[2016-12-26 19:10] VITALS: BP 136/83
[2016-12-27] VITALS (7 sets, daily range): BP systolic 132–147; BP diastolic 72–86
[2016-12-27 03:14] LABS: POINT-OF-CARE METER ID UU14174216
[2016-12-27 07:27] LABS: ANION GAP 8 MEQ/L (2-14); CHLORIDE 101 MEQ/L (99-109); GFR ESTIMATE (CALCULATED) 56 mL/min/; GLUCOSE 249 mg/dL (70-99); SAMPLE HEMOLYSIS CHECK 0; SAMPLE ICTERIC CHECK 0; SAMPLE LIPEMIA CHECK 0; SODIUM 137 MEQ/L (136-147); UREA NITROGEN (BUN) 22 mg/dL (9-23)
[2016-12-27 07:37] LABS: POINT-OF-CARE USER ID ENVKC36
[2016-12-27 07:38] LABS: POINT-OF-CARE METER ID UU14174216
[2016-12-27 11:41] LABS: POINT-OF-CARE USER ID ENVKC36
[2016-12-27 16:35] LABS: POINT-OF-CARE USER ID ENVKC36
[2016-12-27 22:13] LABS: POINT-OF-CARE METER ID UU13113781
[2016-12-28 04:00] VITALS: BP 133/65
[2016-12-28 06:44] LABS: EOSINOPHIL (%) 1.6 % (0-5); EOSINOPHIL COUNT 0.2 K/uL (0-0.3); IMMATURE GRANULOCYTE (%) 0.4 % (0.0-0.7); INSTRUMENT ABS NEUTROPHIL CT 7.5 K/uL; LYMPHOCYTE COUNT 1.6 K/uL (1.0-2.8); MCHC 31.4 G/DL (30.0-36.0); MCV 95.4 FL (83-99); MEAN PLAT.VOLUME 10.3 uM^3 (9.5-12.4); MONOCYTE (%) 9.1 % (3-12); MONOCYTE COUNT 0.9 K/uL (0-0.8); NEUTROPHIL (%) 73.6 % (45-76); NEUTROPHIL COUNT 7.5 K/uL (1.8-6.4); PLATELET COUNT 175 K/uL (156-360); RBC DIS.WIDTH-CV 14.6 % (11.8-14.6); RBC DIS.WIDTH-SD 51.3 % (39-53); RED BLOOD COUNT 3.67 M/uL (3.80-5.20); WHITE BLOOD COUNT 10.2 K/uL (4.1-10.2)
[2016-12-28 07:14] LABS: ANION GAP 7 MEQ/L (2-14); CHLORIDE 102 MEQ/L (99-109); GFR ESTIMATE (CALCULATED) > 59 mL/min/; POTASSIUM 3.9 MEQ/L (3.7-5.4); SAMPLE HEMOLYSIS CHECK 0; SAMPLE ICTERIC CHECK 0; SAMPLE LIPEMIA CHECK 0; SODIUM 138 MEQ/L (136-147); UREA NITROGEN (BUN) 18 mg/dL (9-23)
[2016-12-28 07:35] LABS: GLUCOSE 119 mg/dL (70-99)
[2016-12-28 08:15] LABS: POINT-OF-CARE USER ID NUTSLF44
[2016-12-28 11:57] LABS: POINT-OF-CARE USER ID NUTSLF44
[2016-12-28] MEDS ORDERED: VALACYCLOVIR500 MG PO (12:25)
[2016-12-28] MEDS ORDERED: K-DUR20 MEQ PO (12:31)
[2016-12-28] MEDS ORDERED: DILTIAZEM 24HR180 MG PO (12:31)
[2016-12-28] MEDS ORDERED: DIGOXIN125 MCG PO (12:31)
== END 2016-12-28 15:54 | DRG 291 ==
LOC: EME → EDBD 10:05 → EDOF 13:41 → 4WEST 13:41 → 4EAST 13:41 → 4WEST 14:59 → 3EAST 12-23 22:27 → 4EAST 12-26 05:01
PROVIDERS: Anesthesiology; Emergency Medicine; Hospitalist; Internal Medicine; Internal Medicine Critical Care Medicine; Physician Assistant; Student in an Organized Health Care Education/Training Program
DX: I50.23 Acute on chronic systolic (congestive) heart failure (principal); J96.01 Acute respiratory failure with hypoxia; N17.9 Acute kidney failure, unspecified; J44.1 Chronic obstructive pulmonary disease with (acute) exacerbation; I42.9 Cardiomyopathy, unspecified; B02.8 Zoster with other complications; E87.2 Acidosis; E11.22 Type 2 diabetes mellitus with diabetic chronic kidney disease; I25.5 Ischemic cardiomyopathy; I25.2 Old myocardial infarction; I48.91 Unspecified atrial fibrillation; I12.9 Hypertensive chronic kidney disease with stage 1 through stage 4 chronic kidney disease, or unspecified chronic kidney disease; N18.3 Chronic kidney disease, stage 3 (moderate); K21.9 Gastro-esophageal reflux disease without esophagitis; K44.9 Diaphragmatic hernia without obstruction or gangrene; E03.9 Hypothyroidism, unspecified; K76.0 Fatty (change of) liver, not elsewhere classified; F32.9 Major depressive disorder, single episode, unspecified; G89.29 Other chronic pain; D64.9 Anemia, unspecified; Z95.1 Presence of aortocoronary bypass graft; K11.7 Disturbances of salivary secretion; Z90.49 Acquired absence of other specified parts of digestive tract; E78.5 Hyperlipidemia, unspecified; R60.0 Localized edema
CPT/HCPCS: 71010; 80048; 80048 91; 80053; 80162; 82803; 82948; 83735; 83880; 84100; 84443; 84484; 85025; 85025 91; 85027; 87641; 92610 GN; 93005; 94002; 94010; 94640; 94640 76; 94667; 94668; 94760; 94799; 97530 GO; 97530 GP; 99202; 99281; 99285; J1160; J1815; J1940; J2920; J2930; J7512; J7644

== ENCOUNTER 2017-03-06 16:00 | Inpatient (IN) | payer OTHER ==
[~2017-03-06] VITALS: Ht 165.1 cm; Wt 51.0 kg
[~2017-03-06 16:00] MED LIST changes: +BREO ELLIPTA I1 EACH IH; +DIGOXIN125 MCG PO; +DILTIAZEM 24HR180 MG PO; +DULCOLAX10 MG PR; +FUROSEMIDE40 MG PO; +K-DUR20 MEQ PO; +METFORMIN HCL500 MG PO; +METOPROLOL TART50 MG PO; +MILLIPRED5 MG PO; +MIRALAX255 GM PO; +PHILLIPS'400 MG/5 M PO; +VALACYCLOVIR500 MG PO
[2017-03-06 17:38] LABS: EOSINOPHIL (%) 1.9 % (0-5); EOSINOPHIL COUNT 0.1 K/uL (0-0.3); HEMATOCRIT 32.9 % (36.0-46.0); IMMATURE GRANULOCYTE (%) 0.7 % (0.0-0.7); IMMATURE GRANULOCYTE COUNT 0.1 K/uL; INSTRUMENT ABS NEUTROPHIL CT 6.1 K/uL; LYMPHOCYTE COUNT 0.9 K/uL (1.0-2.8); MCH 31.1 PG (29.0-34.0); MCHC 31.3 G/DL (30.0-36.0); MCV 99.4 FL (83-99); MEAN PLAT.VOLUME 10.1 uM^3 (9.5-12.4); MONOCYTE (%) 3.2 % (3-12); MONOCYTE COUNT 0.2 K/uL (0-0.8); NEUTROPHIL (%) 81.6 % (45-76); NEUTROPHIL COUNT 6.1 K/uL (1.8-6.4); PLATELET COUNT 236 K/uL (156-360); RBC DIS.WIDTH-CV 15.3 % (11.8-14.6); RED BLOOD COUNT 3.31 M/uL (3.80-5.20); WHITE BLOOD COUNT 7.5 K/uL (4.1-10.2)
[2017-03-06 18:14] LABS: TROP-I INTERPRETATION NEGATIVE; TROPONIN-I 0.03 ng/mL (0.0-0.30)
[2017-03-06 18:16] LABS: CHLORIDE 104 mEq/L (99-109); POTASSIUM 4.8 mEq/L (3.7-5.4); SODIUM 138 mEq/L (136-147)
[2017-03-06 18:18] LABS: GLUCOSE 132 mg/dL (70-99)
[2017-03-06 18:19] LABS: ANION GAP 10 MEQ/L (2-14)
[2017-03-06 18:20] LABS: TOTAL BILIRUBIN 0.8 mg/dL (0.0-1.0)
[2017-03-06 18:21] LABS: ALKALINE PHOSPHATASE 64 IU/L (3-129)
[2017-03-06 18:22] LABS: GFR ESTIMATE (CALCULATED) > 59 mL/min/
[2017-03-06 18:23] LABS: DIRECT BILIRUBIN 0.4 mg/dL (0.0-0.3); UREA NITROGEN (BUN) 11 mg/dL (9-23)
[2017-03-06 18:25] LABS: LIPASE 20 U/L (1.0-51.0)
[2017-03-06 19:49] LABS: ADD MIUA? YES; BILIRUBIN NEGATIVE; BLOOD LARGE; COLOR YELLOW ((YELLOW)); GLUCOSE (STRIP) NEGATIVE; KETONES 5; LEUKOCYTES SMALL; NITRITE NEGATIVE; PROTEIN (STRIP) 100; SPECIFIC GRAVITY 1.012 (1.000-1.030)
[2017-03-06 19:57] LABS: BACTERIA RARE /HPF; EPITHELIAL CELLS RARE /HPF; MUCUS TRACE /LPF; RED BLOOD CELLS TNTC /HPF (0-5); UCUL ADDED? NO
[2017-03-07] MEDS ORDERED: ACCOLATE20 MG PO (09:51)
[2017-03-07] MEDS ORDERED: ISOSORBIDE MONO60 MG PO (09:52)
[2017-03-07] MEDS ORDERED: DEXILANT60 MG PO (09:52)
[2017-03-07] MEDS ORDERED: VENTOLIN HFA18 GM IH (09:52)
[2017-03-07] MEDS ORDERED: ALBUTEROL2.5 MG/3 M IH (09:54)
[2017-03-07] MEDS ORDERED: LEVO-T75 MCG PO (09:54)
[2017-03-07] MEDS ORDERED: PAXIL40 MG PO (09:54)
[2017-03-07] MEDS ORDERED: ELIQUIS2.5 MG PO (09:55)
[2017-03-07] MEDS ORDERED: BREO ELLIPTA I1 EACH IH (09:55)
[2017-03-07] MEDS ORDERED: DUONEB 2.5-0.5 M3 ML AEROSOL (09:56)
[2017-03-07] MEDS ORDERED: GLUCOPHAGE500 MG PO (09:56)
[2017-03-07 09:57] VITALS: BP 142/82
[2017-03-07] MEDS ORDERED: LASIX20 MG PO (09:57)
[2017-03-07] MEDS ORDERED: DIGOX125 MCG PO (09:58)
[2017-03-07] MEDS ORDERED: GLIPIZIDE5 MG PO (09:59)
[2017-03-07 12:30] VITALS: BP 140/80
[2017-03-07 16:58] VITALS: BP 141/80
[2017-03-07 20:00] VITALS: BP 123/67
[2017-03-07 21:45] LABS: POINT-OF-CARE METER ID UU13113807
[2017-03-08] VITALS (7 sets, daily range): BP systolic 126–171; BP diastolic 70–83
[2017-03-08 08:24] LABS: POINT-OF-CARE METER ID UU13113807
[2017-03-08 10:22] LABS: HEMATOCRIT 36.7 % (36.0-46.0); MCHC 30.8 G/DL (30.0-36.0); MCV 100.5 FL (83-99); MEAN PLAT.VOLUME 10.2 uM^3 (9.5-12.4); PLATELET COUNT 250 K/uL (156-360); RBC DIS.WIDTH-CV 14.9 % (11.8-14.6); RBC DIS.WIDTH-SD 55.8 % (39-53); RED BLOOD COUNT 3.65 M/uL (3.80-5.20); WHITE BLOOD COUNT 8.4 K/uL (4.1-10.2)
[2017-03-08 10:46] LABS: ANION GAP 9 MEQ/L (2-14); CHLORIDE 100 MEQ/L (99-109); POTASSIUM 4.1 MEQ/L (3.7-5.4); SAMPLE HEMOLYSIS CHECK 0; SAMPLE ICTERIC CHECK 0; SAMPLE LIPEMIA CHECK 0; SODIUM 140 MEQ/L (136-147)
[2017-03-08 10:52] LABS: GFR ESTIMATE (CALCULATED) > 59 mL/min/; GLUCOSE 181 mg/dL (70-99); UREA NITROGEN (BUN) 13 mg/dL (9-23)
[2017-03-08 12:25] LABS: POINT-OF-CARE METER ID UU13113807
[2017-03-08 16:53] LABS: POINT-OF-CARE METER ID UU13113807
[2017-03-08 21:19] LABS: POINT-OF-CARE METER ID UU13113807
[2017-03-09 04:24] VITALS: BP 158/88
[2017-03-09 06:40] LABS: ANION GAP 8 MEQ/L (2-14); CHLORIDE 102 MEQ/L (99-109); GFR ESTIMATE (CALCULATED) > 59 mL/min/; LACTATE DEHYDROGENASE 248 IU/L (20-246); POTASSIUM 3.7 MEQ/L (3.7-5.4); SAMPLE HEMOLYSIS CHECK 0; SAMPLE ICTERIC CHECK 0; SAMPLE LIPEMIA CHECK 0; SODIUM 139 MEQ/L (136-147); UREA NITROGEN (BUN) 13 mg/dL (9-23)
[2017-03-09 06:44] LABS: GLUCOSE 117 mg/dL (70-99)
[2017-03-09 07:51] LABS: POINT-OF-CARE METER ID UU13113807
[2017-03-09 08:20] VITALS: BP 130/70
[2017-03-09 11:40] VITALS: BP 132/75
[2017-03-09 11:52] LABS: POINT-OF-CARE METER ID UU13113807
[2017-03-09 15:00] VITALS: BP 128/77
[2017-03-09 16:01] LABS: POINT-OF-CARE METER ID UU13113807
[2017-03-09 20:05] VITALS: BP 146/74
[2017-03-09 21:44] LABS: POINT-OF-CARE METER ID UU13113807
[2017-03-09 23:38] VITALS: BP 146/61
[2017-03-10 04:09] VITALS: BP 142/77
[2017-03-10 07:00] LABS: ANION GAP 9 MEQ/L (2-14); CHLORIDE 103 MEQ/L (99-109); GFR ESTIMATE (CALCULATED) > 59 mL/min/; GLUCOSE 101 mg/dL (70-99); POTASSIUM 4.4 MEQ/L (3.7-5.4); SAMPLE HEMOLYSIS CHECK 1; SAMPLE ICTERIC CHECK 0; SAMPLE LIPEMIA CHECK 0; SODIUM 141 MEQ/L (136-147); UREA NITROGEN (BUN) 13 mg/dL (9-23)
[2017-03-10 07:53] VITALS: BP 130/94
[2017-03-10 11:43] LABS: POINT-OF-CARE METER ID UU13113807
[2017-03-10 12:00] VITALS: BP 138/83
[2017-03-10 15:58] VITALS: BP 125/76
[2017-03-10 16:55] LABS: POINT-OF-CARE METER ID UU13113807
[2017-03-10 20:17] VITALS: BP 144/87
[2017-03-10 21:35] LABS: POINT-OF-CARE METER ID UU13113807
[2017-03-10 23:35] VITALS: BP 142/67
[2017-03-11 03:52] VITALS: BP 145/90
[2017-03-11 07:51] LABS: POINT-OF-CARE METER ID UU13113807
[2017-03-11 08:13] VITALS: BP 153/80
[2017-03-11 11:52] VITALS: BP 120/68
[2017-03-11 12:23] LABS: POINT-OF-CARE METER ID UU13113807
[2017-03-11 16:24] VITALS: BP 167/95
[2017-03-11 17:19] LABS: POINT-OF-CARE METER ID UU13113807
[2017-03-11 19:44] VITALS: BP 162/89
[2017-03-11 21:42] LABS: POINT-OF-CARE METER ID UU13113807
[2017-03-11 23:47] VITALS: BP 132/71
[2017-03-12 08:14] VITALS: BP 142/92
[2017-03-12 09:05] LABS: POINT-OF-CARE METER ID UU13113807
[2017-03-12 12:26] LABS: POINT-OF-CARE METER ID UU13113807
[2017-03-12 15:51] VITALS: BP 141/85
[2017-03-12 17:33] LABS: POINT-OF-CARE METER ID UU13113807
[2017-03-12 20:22] VITALS: BP 138/73
[2017-03-12 21:21] LABS: POINT-OF-CARE METER ID UU13113807
[2017-03-12 23:44] VITALS: BP 149/70
[2017-03-13 07:54] VITALS: BP 144/95
[2017-03-13 09:00] LABS: POINT-OF-CARE METER ID UU13113807
[2017-03-13] MEDS ORDERED: LISINOPRIL5 MG PO (10:21)
[2017-03-13] MEDS ORDERED: AMOXICILLIN500 MG PO (10:21)
[2017-03-13] MEDS ORDERED: CARVEDILOL3.125 MG PO (10:21)
[2017-03-13] MEDS ORDERED: ALPRAZOLAM0.25 M2 PO (10:21)
[2017-03-13] MEDS ORDERED: SPIRIVA RESPIMAT4 GM IH (10:21)
[2017-03-13] MEDS ORDERED: TRAMADOL HCL50 MG PO (10:21)
[2017-03-13 13:11] LABS: POINT-OF-CARE METER ID UU13113807
== END 2017-03-13 14:44 | disposition hospice, home (50) | DRG 292 ==
LOC: EME 16:00 → EDOF 03-07 01:05 → 4SOUTH 03-07 01:05
PROVIDERS: Emergency Medicine; Internal Medicine; Physician Assistant Medical
DX: I50.23 Acute on chronic systolic (congestive) heart failure (principal); J44.1 Chronic obstructive pulmonary disease with (acute) exacerbation; N39.0 Urinary tract infection, site not specified; N20.1 Calculus of ureter; I13.0 Hypertensive heart and chronic kidney disease with heart failure and stage 1 through stage 4 chronic kidney disease, or unspecified chronic kidney disease; J45.901 Unspecified asthma with (acute) exacerbation; J96.11 Chronic respiratory failure with hypoxia; J98.11 Atelectasis; F05 Delirium due to known physiological condition; I25.10 Atherosclerotic heart disease of native coronary artery without angina pectoris; I25.5 Ischemic cardiomyopathy; I48.2 Chronic atrial fibrillation; N18.9 Chronic kidney disease, unspecified; K21.9 Gastro-esophageal reflux disease without esophagitis; E11.22 Type 2 diabetes mellitus with diabetic chronic kidney disease; K44.9 Diaphragmatic hernia without obstruction or gangrene; K57.90 Diverticulosis of intestine, part unspecified, without perforation or abscess without bleeding; K76.0 Fatty (change of) liver, not elsewhere classified; K80.70 Calculus of gallbladder and bile duct without cholecystitis without obstruction; M19.90 Unspecified osteoarthritis, unspecified site; R29.6 Repeated falls; Z79.4 Long term (current) use of insulin; Z99.81 Dependence on supplemental oxygen; Z95.1 Presence of aortocoronary bypass graft; I25.2 Old myocardial infarction; Z80.9 Family history of malignant neoplasm, unspecified; Z82.49 Family history of ischemic heart disease and other diseases of the circulatory system
CPT/HCPCS: 71010; 71250; 72170; 73610; 74176; 80048; 80076; 81003; 82948; 83615; 83615 91; 83690; 83880; 83986 90; 84155; 84157; 84484; 85025; 85027; 87077; 87086; 87186; 93005; 94640; 94640 76; 94799; 97530 GP; 99202; 99281; 99285; J0696; J1100; J1644; J1815; J1940; J7050; J7644